=== PATIENT | male | born 1980 ===

== ENCOUNTER 2018-01-09 16:48 | Emergency (ER) | payer BC ==
[2018-01-09] MEDS ORDERED: Acyclovir* 200 MG CAP PO ONE (18:35)
--- NOTE | 2018-01-09 18:46 | UC ---
Skin Complaint HPI - HPI Summary HPI Summary: This is an otherwise healthy 37 yo male who presented with c/o a painful rash. He has had pain in the area of the rash for the lsat 3-4 days, and the rash erupted this morning. He denies assoc fever or other systemic symptoms. - History of Current Complaint Chief Complaint: UCSkin Stated Complaint: SKIN COMPLAINT Pain Intensity: 6 - Allergy/Home Medications Allergies/Adverse Reactions: Allergies Allergy/AdvReac Type Severity Reaction Status Date / Time No Known Allergies Allergy Verified 01/09/18 17:31 Home Medications: Home Medications Ibuprofen 200 mg PO 01/09/18 [History] Review of Systems Constitutional: Negative Skin: Rash Eyes: Negative ENT: Negative Respiratory: Negative Cardiovascular: Negative Gastrointestinal: Negative Genitourinary: Negative Motor: Negative Neurovascular: Negative Musculoskeletal: Negative Neurological: Headache Psychological: Negative Is Patient Immunocompromised?: No All Other Systems Reviewed And Are Negative: Yes PMH/Surg Hx/FS Hx/Imm Hx Previously Healthy: Yes - Surgical History Surgical History: Yes Surgery Procedure, Year, and Place: varacosity repair - Family History Known Family History: Positive: None - Social History Alcohol Use: Occasionally Substance Use Type: None Smoking Status (MU): Never Smoked Tobacco Physical Exam Triage Information Reviewed: Yes Appearance: Well-Appearing Vital Signs: Initial Vital Signs Temp 99.0 F 01/09/18 17:19 Pulse 82 01/09/18 17:19 Resp 18 01/09/18 17:19 BP 160/101 01/09/18 17:19 Pulse Ox 100 01/09/18 17:19 Repeat BP 138/88 Vital Signs Reviewed: Yes ENT: Positive: Normal ENT inspection Neck exam: Normal Neck: Positive: Supple Respiratory Exam: Normal Respiratory: Positive: Lungs clear. Negative: Crackles, Rhonchi, Wheezing Cardiovascular: Positive: RRR, No Murmur Abdomen Description: Positive: Nontender Musculoskeletal Exam: Normal Musculoskeletal: Positive: Strength Intact Neurological Exam: Normal Neurological: Positive: Alert Psychological Exam: Normal Skin: Positive: rashes - satelites of erythema with fine vesicles in a linear pattern over the left chest and back, just under the level of the nipple Course/Dx - Course Course Of Treatment: This is a 37 yo male who presents with c/o a painful rash which appears c/w herpes zoster. Treatment with Valtrex, first dose administered this evening. - Differential Diagnoses - Skin Complaint Differential Diagnoses: Cellulitis, Urticaria, Varicella Zoster - Diagnoses Provider Diagnoses: 1. Herpes zoster Discharge - Discharge Plan Condition: Stable Disposition: HOME Prescriptions: ValACYclovir (*) [Valtrex 1 GM(*)] 1 gm PO TID #21 tab Patient Education Materials: Shingles (ED) Referrals: No Primary Care Phys,NOPCP [Primary Care Provider] - Additional Instructions: Instructions: 1. Please take Valtrex as prescribed (complete full 7days of medication) 2. Use 600-800 mg ibuprofen every 6-8 hours for the pain (maximum 2400 mg in a 24h period)
== END 2018-01-09 18:47 | disposition home or self-care (01) ==
LOC: UCEAST 16:48
DX: B02.9 Zoster without complications (principal)
CPT/HCPCS: 99202; A9270-GY; G0463